=== PATIENT | male | born 1950 | race Caucasian/White ===

== ENCOUNTER 2018-03-27 16:39 | Emergency (ER) | payer MEDICARE, BC ==
[~2018-03-27] VITALS: Ht 182.9 cm; Wt 81.6 kg
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
[2018-03-27] MEDS ORDERED: HYDROCODONE/APAP 10/325MG 1 EA TABLET ONE (17:13)
[2018-03-27] MEDS: HYDROCODONE/APAP 10/325MG 1 EA TABLET PO ONE ×2 (17:15→17:48)
--- NOTE | 2018-03-27 17:16 | NUR ---
PT TO CT.
--- NOTE | 2018-03-27 17:41 | NUR ---
PT RETURNED FROM CT.
[2018-03-27] MEDS ORDERED: TDAP [DIPH/PERTUSSIS/TET] 0.5 ML VIAL IM ONE ×2 (18:00→18:49)
[2018-03-27] MEDS ORDERED: LIDOCAINE HCL/PF 1% 30 ML VIAL TP ONE (18:00)
[2018-03-27] MEDS ORDERED: LIDOCAINE /MPF 1% VIAL 5 ML VIAL ONE (18:12)
--- NOTE | 2018-03-27 18:29 | NUR ---
ELISSA FOSTER AT BEDSIDE FOR LAC REPAIR.
--- NOTE | 2018-03-27 19:02 | NUR ---
Patient discharged to home in stable condition. Written and verbal after care instructions given. Patient verbalizes understanding of instruction. ambulatory with a steady gait. instructed pt not to drive. pt verbalize understanding.
[2018-03-27 19:04] VITALS: BP 148/98
== END 2018-03-27 19:05 | disposition home or self-care (01) ==
LOC: ER 16:43
DX: S02.2XXA Fracture of nasal bones, initial encounter for closed fracture (principal); S01.21XA Laceration without foreign body of nose, initial encounter; S20.212A Contusion of left front wall of thorax, initial encounter; S50.312A Abrasion of left elbow, initial encounter; S50.311A Abrasion of right elbow, initial encounter; E78.5 Hyperlipidemia, unspecified; V00.131A Fall from skateboard, initial encounter; Y93.51 Activity, roller skating (inline) and skateboarding; Y92.89 Other specified places as the place of occurrence of the external cause; Y99.8 Other external cause status
CPT/HCPCS: 12011; 70450; 70486; 71250; 72125; 73080 ×2; 90471; 90715; 99284; A4606; A6402 ×2; A6403; J3490 ×2; Z7610

== ENCOUNTER 2023-12-10 18:09 | Emergency (ER) | payer MEDICARE, BC ==
[~2023-12-10] VITALS: Ht 182.9 cm; Wt 83.9 kg
[2023-12-10 18:25] VITALS: TEMP 98.1
[2023-12-10] MEDS ORDERED: TDAP [DIPH/PERTUSSIS/TET] 0.5 ML VIAL IM ONE (18:30)
[2023-12-10] MEDS: TDAP [DIPH/PERTUSSIS/TET] 0.5 ML VIAL IM ONE (18:30)
[2023-12-10] MEDS ORDERED: LIDOCAINE HCL/PF 1% 30 ML SDV ONE (19:09)
[2023-12-10] MEDS ORDERED: LIDOCAINE 1%-EPI 1:100,000 20 ML VIAL ONE (19:12)
[2023-12-10 20:36] VITALS: BP 122/78; O2SAT 100
== END 2023-12-10 20:37 | disposition home or self-care (01) ==
LOC: ER 18:13
DX: S02.2XXA Fracture of nasal bones, initial encounter for closed fracture (principal); S01.81XA Laceration without foreign body of other part of head, initial encounter; I48.91 Unspecified atrial fibrillation; Z60.2 Problems related to living alone; W22.8XXA Striking against or struck by other objects, initial encounter; Y93.89 Activity, other specified; Y92.89 Other specified places as the place of occurrence of the external cause; Y99.8 Other external cause status
CPT/HCPCS: 99285; 70450; 12013; 90471; 90715; 70486; A6403 ×3; J3490

== ENCOUNTER 2024-01-26 12:41 | Emergency (ER) | payer MEDICARE, BC ==
[~2024-01-26] VITALS: Ht 182.9 cm; Wt 88.9 kg
[2024-01-26 12:53] VITALS: TEMP 98.4
[2024-01-26] MEDS ORDERED: ACETAMINOPHEN ES 500 MG TABLET ONE (13:33)
[2024-01-26] MEDS: ACETAMINOPHEN ES 500 MG TABLET PO ONE (13:51)
[2024-01-26] MEDS ORDERED: CYCL10TA9 PO (15:58)
[2024-01-26 16:10] VITALS: BP 132/80; O2SAT 98
== END 2024-01-26 16:16 | disposition home or self-care (01) ==
LOC: ER 12:47
DX: S00.81XA Abrasion of other part of head, initial encounter (principal); I48.91 Unspecified atrial fibrillation; Z60.2 Problems related to living alone; W01.0XXA Fall on same level from slipping, tripping and stumbling without subsequent striking against object, initial encounter; Y93.89 Activity, other specified; Y92.89 Other specified places as the place of occurrence of the external cause; Y99.8 Other external cause status
CPT/HCPCS: 70450-TC; 72125-TC